=== PATIENT | male | born 1950 | race Caucasian/White ===

== ENCOUNTER → 2020-05-03 | Outpatient (CLI) | payer MEDICARE ==
[~2020-05-03] MED LIST: BENICAR20 MG PO; COUMADIN5 MG PO; COUMADIN7.5 MG PO; CRESTOR20 MG PO; DIGOXIN250 MCG PO; FINASTERIDE5 MG PO; IOPAMIDOL 370 MG/ML 200 ML INFUS..BTL INJ ONE; JALYN 0.5-0.41 EACH PO; LISINOPRIL10 MG PO; LISINOPRIL5 MG PO; METOPROLOL TART50 MG PO; NEXIUM40 MG PO; OMEPRAZOLE20 M1 PO; PANTOPRAZOLE SO40 MG PO; SODIUM CHLORIDE 0.9% 100 ML ONE; WARFARIN SODIUM5 MG PO
--- NOTE | 2020-05-03 15:04 | Diagnostic Imaging Report ---
Abdomen and Pelvis CTA WITH IV CONTRAST. INDICATION: Abdominal aortic aneurysm. Abdominal pain COMPARISON: None. TECHNIQUE: The abdomen and pelvis were scanned utilizing a multidetector helical scanner from the lung base to the pubic symphysis before and after administration of IV contrast. Coronal and sagittal reformations were obtained. 3D post-processing of the images was performed, and the post-processed images were used in interpretation. CTA protocol was performed. IV CONTRAST: 100mL of Isovue 370 ORAL CONTRAST: Water RADIATION DOSE: Total DLP: 708 mGy*cm FINDINGS: VESSELS: There are moderate calcified and noncalcified atherosclerotic plaques in the aorta and its major branches. There is no evidence of a flap within the aorta to suggest a dissection. No abdominal aortic aneurysm. The celiac artery, superior mesenteric artery, and inferior mesenteric artery are patent. There is a single right renal artery and a single left renal artery, both of which are patent. NON-VASCULAR: LOWER THORAX: No focal lung base consolidation. HEPATOBILIARY: No focal hepatic lesions. No biliary ductal dilatation. The gallbladder appears unremarkable. SPLEEN: No splenomegaly. PANCREAS: No focal masses or ductal dilatation. ADRENALS: No adrenal nodules. KIDNEYS/URETERS: No hydronephrosis, stones, or solid mass lesions. PELVIC ORGANS/BLADDER: Radiopaque prostate fiducials. PERITONEUM / RETROPERITONEUM: No free air or fluid. LYMPH NODES: No lymphadenopathy. GI TRACT: No abnormal bowel thickening. No bowel obstruction. Diverticulosis without CT evidence of diverticulitis. Normal appendix. BONES AND SOFT TISSUES: No acute osseous injury. No suspicious lytic or blastic lesions. Grade 1 anterolisthesis at L5-S1 with associated bilateral L5 pars interarticularis defects. IMPRESSION: No aortic aneurysm or dissection. Diverticulosis. Signed by: Monika Bennett MD on 05/03/2020 3:01 PM
== END ==
LOC: CT 12:20
PROVIDERS: ATTEND Surgery
DX: R10.9 Unspecified abdominal pain (principal); I71.4 Abdominal aortic aneurysm, without rupture
CPT/HCPCS: 74174; J7050; Q9967

== ENCOUNTER → 2020-05-06 | Day surgery (SDC) | payer MEDICARE ==
[2020-05-03 12:51] LABS: BASOPHILS % 0.6 % (0.0-1.0); EOSINOPHILS # (AUTO) 0.1 (0.0-0.4); EOSINOPHILS % 0.7 % (0.0-6.0); HEMATOCRIT 41.5 % (38.2-49.6); HEMOGLOBIN 13.8 g/dL (14.0-18.0); LYMPHOCYTES # (AUTO) 1.2 (1.0-3.2); LYMPHOCYTES % 17.2 % (18.0-39.1); MEAN CORPUSCULAR HEMOGLOBIN 33.7 pg (28-32); MEAN CORPUSCULAR HGB CONC 33.3 g/dL (31-35); MEAN CORPUSCULAR VOLUME 101.2 fL (81-99); MONOCYTES # (AUTO) 1.3 (0.2-0.8); MONOCYTES % 17.3 % (4.4-11.3); NEUTROPHILS # (AUTO) 4.6 (2.1-6.9); NEUTROPHILS % 63.9 % (38.7-80.0); PLATELET COUNT 194 x10e3/uL (140-360); RED CELL DISTRIBUTION WIDTH 13.3 % (11.7-14.4)
[2020-05-03 13:13] LABS: ALANINE AMINOTRANSFERASE 20 IU/L (0-55); ALBUMIN 4.3 g/dL (3.5-5.0); ALBUMIN/GLOBULIN RATIO 1.7 (0.8-2.0); ALKALINE PHOSPHATASE 59 IU/L (40-150); ANION GAP 13.9 mmol/L (8-16); BLOOD UREA NITROGEN 15 mg/dL (7-26); BUN/CREATININE RATIO 16 (6-25); CALCIUM 9.1 mg/dL (8.4-10.2); CARBON DIOXIDE 29 mmol/L (22-29); CHLORIDE 102 mmol/L (98-107); CREATININE, SERUM 0.93 mg/dL (0.72-1.25); EST GLOMERULAR FILTRATION RATE > 60 ML/MIN (60-); GLUCOSE 164 mg/dL (74-118); POTASSIUM 4.9 mmol/L (3.5-5.1); SODIUM 140 mmol/L (136-145)
--- NOTE | 2020-05-03 14:21 | Diagnostic Imaging Report ---
EXAMINATION: CHEST 2 VIEWS INDICATION: Pre-operative COMPARISON: None FINDINGS: LINES/TUBES:None LUNGS:The lungs are well-inflated. No focal consolidation or pulmonary edema. PLEURA:No pleural effusion or pneumothorax. MEDIASTINUM:The cardiomediastinal silhouette appears normal in size and shape. BONES/SOFT TISSUES:No acute osseous injury. ABDOMEN:No free air under the diaphragm. IMPRESSION: No focal pneumonia or pulmonary edema. Signed by: Monika Bennett MD on 05/03/2020 2:18 PM
[~2020-05-06] MED LIST changes: +FENTANYL CITRATE/PF 100MCG/2 ML INJ ONE; -IOPAMIDOL 370 MG/ML 200 ML INFUS..BTL INJ ONE; +LIDOCAINE HCL 2% LOCAL INJ 5 ML SDV VIAL INJ ONE; +PROPOFOL IV EMULSION 10 MG/ML 20 ML VIAL ONE; -SODIUM CHLORIDE 0.9% 100 ML ONE
[2020-05-06 07:36] LABS: INR 1.24; PARTIAL THROMBOPLASTIN TIME 30.7 seconds (23.8-35.5); PROTHROMBIN TIME 16.2 seconds (11.9-14.5)
[2020-05-06 09:37] VITALS: BP 147/85
== END | disposition home or self-care (01) ==
LOC: OR 06:23
PROVIDERS: ATTEND Surgery
DX: Z12.2 Encounter for screening for malignant neoplasm of respiratory organs (principal); K31.7 Polyp of stomach and duodenum; K29.80 Duodenitis without bleeding; K21.9 Gastro-esophageal reflux disease without esophagitis; K57.30 Diverticulosis of large intestine without perforation or abscess without bleeding; K44.9 Diaphragmatic hernia without obstruction or gangrene; J44.9 Chronic obstructive pulmonary disease, unspecified; I25.10 Atherosclerotic heart disease of native coronary artery without angina pectoris; I11.0 Hypertensive heart disease with heart failure; I50.9 Heart failure, unspecified; Z01.810 Encounter for preprocedural cardiovascular examination; Z01.812 Encounter for preprocedural laboratory examination; Z01.818 Encounter for other preprocedural examination; Z20.828 Contact with and (suspected) exposure to other viral communicable diseases; Z95.5 Presence of coronary angioplasty implant and graft
CPT/HCPCS: 36415 ×2; 43239; 45378; 71046; 80053; 85025; 85610; 85730; 88305; 93005; J2001; J2704; J3010; U0002

== ENCOUNTER → 2020-07-14 | Outpatient (CLI) | payer OTHER ==
[~2020-07-14] MED LIST changes: +COVID-19 VACC, MRNA(MODERNA)/PF 100 MCG/0.5 ML VIAL IM ONE; -FENTANYL CITRATE/PF 100MCG/2 ML INJ ONE; -LIDOCAINE HCL 2% LOCAL INJ 5 ML SDV VIAL INJ ONE; -PROPOFOL IV EMULSION 10 MG/ML 20 ML VIAL ONE
== END ==
LOC: VACCPMC 14:04
DX: Z23 Encounter for immunization (principal); Z20.822 Contact with and (suspected) exposure to COVID-19
CPT/HCPCS: 91301

== ENCOUNTER → 2020-08-07 | Outpatient (CLI) | payer OTHER | END | disposition home or self-care (01) | LOC: VACCPMC 09:32 | DX: Z23 Encounter for immunization (principal); Z20.822 Contact with and (suspected) exposure to COVID-19 | CPT/HCPCS: 91301 ==

== ENCOUNTER → 2021-04-14 | Outpatient (CLI) | payer OTHER, MEDICARE | LOC: VACCPMC 15:22 | DX: Z23 Encounter for immunization (principal); Z20.822 Contact with and (suspected) exposure to COVID-19 | CPT/HCPCS: 91301 ==

== ENCOUNTER → 2024-06-10 | Outpatient (REF) | payer MEDICARE ==
[~2024-06-10] MED LIST changes: -COVID-19 VACC, MRNA(MODERNA)/PF 100 MCG/0.5 ML VIAL IM ONE
== END ==
LOC: RAD 09:24
PROVIDERS: ATTEND Surgery
DX: M54.6 Pain in thoracic spine (principal); M54.50 Low back pain, unspecified; J98.11 Atelectasis
CPT/HCPCS: 71046; 72070; 72110

== ENCOUNTER 2024-06-20 11:08 | Inpatient (IN) | payer MEDICARE ==
[~2024-06-20] VITALS: Ht 172.7 cm; Wt 92.0 kg
[2024-06-20 12:03] LABS: BASOPHILS % 0.2 % (0.0-1.0); EOSINOPHILS # (AUTO) 0.4 (0.0-0.4); EOSINOPHILS % 1.9 % (0.0-6.0); HEMATOCRIT 38.4 % (38.2-49.6); HEMOGLOBIN 12.3 g/dL (14.0-18.0); LYMPHOCYTES # (AUTO) 0.4 (1.0-3.2); LYMPHOCYTES % 1.9 % (18.0-39.1); MEAN CORPUSCULAR HEMOGLOBIN 34.1 pg (28-32); MEAN CORPUSCULAR VOLUME 106.4 fL (81-99); MONOCYTES # (AUTO) 1.7 (0.2-0.8); MONOCYTES % 8.8 % (4.4-11.3); NEUTROPHILS % 86.8 % (38.7-80.0); PLATELET COUNT 249 x10e3/uL (140-360); RED BLOOD COUNT 3.61 x10e6/uL (4.3-5.7); RED CELL DISTRIBUTION WIDTH 13.2 % (11.7-14.4); WHITE BLOOD COUNT 19.61 x10e3/uL (4.8-10.8)
[2024-06-20 12:21] LABS: INR 2.56; PROTHROMBIN TIME 28.8 seconds (11.9-14.5)
[2024-06-20 12:22] LABS: PARTIAL THROMBOPLASTIN TIME 38.3 seconds (23.8-35.5)
[2024-06-20 12:31] LABS: ALBUMIN 4.3 g/dL (3.5-5.0); ALBUMIN/GLOBULIN RATIO 1.7 (0.8-2.0); ANION GAP 15.2 mmol/L (8-16); BILIRUBIN,TOTAL 1.5 mg/dL (0.2-1.2); CALCIUM 9.6 mg/dL (8.4-10.2); CREATININE, SERUM 0.76 mg/dL (0.72-1.25); POTASSIUM 4.2 mmol/L (3.5-5.1); TOTAL PROTEIN 6.8 g/dL (6.5-8.1)
[2024-06-20] MEDS ORDERED: SODIUM CHLORIDE FLUSH 10 ML SYR INJ PRN (13:45)
[2024-06-20] MEDS ORDERED: ONDANSETRON HCL INJ 2MG/ML 2ML 2 MG/ML VIAL IV PRN (13:45)
[2024-06-20] MEDS: FUROSEMIDE INJ 10 MG/ML 4 ML VIAL IV SCH ×2 (14:10→18:56)
[2024-06-20] MEDS: CLINDAMYCIN 600MG / 50ML 50 ML IV ONE (14:11)
[2024-06-20 15:40] VITALS: PULSE 80; RESP 14; TEMP 98.2
[2024-06-20 16:30] VITALS: BP 119/96; PULSE 95; RESP 17; TEMP 97.5; O2SAT 97
[2024-06-20] MEDS ORDERED: METFORMIN HCL500 M1 PO (16:40)
[2024-06-20] MEDS ORDERED: JANTOVEN7.5 MG (16:40)
[2024-06-20] MEDS ORDERED: JANTOVEN5 MG (16:40)
[2024-06-20] MEDS ORDERED: PROTONIX20 MG PO (16:40)
[2024-06-20 17:42] VITALS: BP 119/96; PULSE 95; RESP 20; TEMP 97.5; O2SAT 98
[2024-06-20 17:45] VITALS: BP 119/96; PULSE 95; RESP 20; TEMP 97.5; O2SAT 98
[2024-06-20] MEDS: HYDROCODONE/APAP 7.5MG-325MG 1 EA TAB PO PRN (18:57)
[2024-06-20 20:00] VITALS: BP 136/67; PULSE 90; RESP 20; TEMP 99; O2SAT 97
[2024-06-20] MEDS: OLMESARTAN 20 MG TAB PO SCH (21:48)
[2024-06-20] MEDS: CRESTOR 10MG PO SCH (21:48)
[2024-06-21] VITALS (11 sets, daily range): BP systolic 109–135; BP diastolic 60–78; PULSE 79–108; RESP 16–20; TEMP 97–98.4; O2SAT 93–100
[2024-06-21] MEDS: LEVALBUTEROL HCL SOLN NEBU 0.63 MG/3 ML NEB INH PRN (03:10)
[2024-06-21] MEDS: FUROSEMIDE INJ 10 MG/ML 4 ML VIAL ONE (04:04)
[2024-06-21] MEDS: FUROSEMIDE INJ 10 MG/ML 4 ML VIAL IV ONE (04:09)
[2024-06-21 07:00] LABS: BASOPHILS % 0.3 % (0.0-1.0); EOSINOPHILS % 0.1 % (0.0-6.0); HEMATOCRIT 36.1 % (38.2-49.6); HEMOGLOBIN 12.2 g/dL (14.0-18.0); LYMPHOCYTES # (AUTO) 0.6 (1.0-3.2); LYMPHOCYTES % 4.4 % (18.0-39.1); MEAN CORPUSCULAR HEMOGLOBIN 34.2 pg (28-32); MEAN CORPUSCULAR HGB CONC 33.8 g/dL (31-35); MEAN CORPUSCULAR VOLUME 101.1 fL (81-99); MONOCYTES # (AUTO) 1.5 (0.2-0.8); MONOCYTES % 10.5 % (4.4-11.3); NEUTROPHILS % 84.1 % (38.7-80.0); PLATELET COUNT 250 x10e3/uL (140-360); RED BLOOD COUNT 3.57 x10e6/uL (4.3-5.7); RED CELL DISTRIBUTION WIDTH 13.7 % (11.7-14.4); WHITE BLOOD COUNT 14.27 x10e3/uL (4.8-10.8)
[2024-06-21 07:26] LABS: ALBUMIN/GLOBULIN RATIO 1.7 (0.8-2.0); ANION GAP 16.9 mmol/L (8-16); BILIRUBIN,TOTAL 1.4 mg/dL (0.2-1.2); CALCIUM 9.7 mg/dL (8.4-10.2); CREATININE, SERUM 0.82 mg/dL (0.72-1.25); POTASSIUM 3.9 mmol/L (3.5-5.1); TOTAL PROTEIN 6.4 g/dL (6.5-8.1)
[2024-06-21] MEDS: METOPROLOL TARTRATE 50 MG TAB PO SCH (09:25)
[2024-06-21] MEDS: SODIUM CHLORIDE 0.9% 250ML 250 ML ONE (09:34)
[2024-06-21] MEDS ORDERED: WARFARIN SOD 5 MG TAB PO SCH (17:00)
[2024-06-22] VITALS (8 sets, daily range): BP systolic 111–151; BP diastolic 58–122; PULSE 82–112; RESP 18–22; TEMP 97.6–98.6; O2SAT 92–96
[2024-06-22] MEDS: HYDROMORPHONE 1MG/1ML INJ IV PRN (04:20)
[2024-06-22 06:35] LABS: INR 2.14
[2024-06-22] MEDS: METOPROLOL SUCCINATE 50 MG TAB XL PO SCH (08:08)
[2024-06-23] VITALS (9 sets, daily range): BP systolic 110–169; BP diastolic 71–91; PULSE 60–107; RESP 16–20; TEMP 97.6–98.6; O2SAT 95–100
[2024-06-23 06:29] LABS: BASOPHILS # (AUTO) 0.1 (0.0-0.1); BASOPHILS % 0.5 % (0.0-1.0); EOSINOPHILS # (AUTO) 0.1 (0.0-0.4); EOSINOPHILS % 1.4 % (0.0-6.0); HEMATOCRIT 38.7 % (38.2-49.6); HEMOGLOBIN 12.9 g/dL (14.0-18.0); LYMPHOCYTES # (AUTO) 1.1 (1.0-3.2); LYMPHOCYTES % 10.6 % (18.0-39.1); MEAN CORPUSCULAR HEMOGLOBIN 33.6 pg (28-32); MEAN CORPUSCULAR HGB CONC 33.3 g/dL (31-35); MEAN CORPUSCULAR VOLUME 100.8 fL (81-99); MONOCYTES # (AUTO) 2.1 (0.2-0.8); NEUTROPHILS # (AUTO) 6.9 (2.1-6.9); NEUTROPHILS % 66.9 % (38.7-80.0); PLATELET COUNT 286 x10e3/uL (140-360); RED BLOOD COUNT 3.84 x10e6/uL (4.3-5.7); RED CELL DISTRIBUTION WIDTH 13.6 % (11.7-14.4); WHITE BLOOD COUNT 10.24 x10e3/uL (4.8-10.8)
[2024-06-23 06:55] LABS: INR 1.44; PROTHROMBIN TIME 18.3 seconds (11.9-14.5)
[2024-06-23 06:57] LABS: ALBUMIN 3.8 g/dL (3.5-5.0); ALBUMIN/GLOBULIN RATIO 1.3 (0.8-2.0); ANION GAP 16.9 mmol/L (8-16); BILIRUBIN,TOTAL 1.2 mg/dL (0.2-1.2); CREATININE, SERUM 0.73 mg/dL (0.72-1.25); POTASSIUM 3.9 mmol/L (3.5-5.1); TOTAL PROTEIN 6.8 g/dL (6.5-8.1)
[2024-06-23 08:20] LABS: EOSINOPHILS % (MANUAL) 3 % (0-7); LYMPHOCYTES % (MANUAL) 10 % (19-48); MONOCYTES % (MANUAL) 12 % (3.4-9.0); NEUTROPHILS % (MANUAL) 72 % (40-74); PLATELET ESTIMATE ADEQUATE; PLATELET MORPHOLOGY COMMENT NORMAL; RBC MORPHOLOGY COMMENT NORMAL; REACTIVE LYMPHOCYTES 3
[2024-06-24] VITALS (9 sets, daily range): BP systolic 108–138; BP diastolic 67–90; PULSE 83–103; RESP 16–20; TEMP 97.6–98.3; O2SAT 96–100
[2024-06-25] VITALS (11 sets, daily range): BP systolic 100–144; BP diastolic 75–98; PULSE 74–95; RESP 18–20; TEMP 97.8–98.9; O2SAT 93–98
[2024-06-25 05:42] LABS: BASOPHILS # (AUTO) 0.1 (0.0-0.1); EOSINOPHILS # (AUTO) 0.2 (0.0-0.4); EOSINOPHILS % 3.4 % (0.0-6.0); HEMATOCRIT 36.3 % (38.2-49.6); LYMPHOCYTES # (AUTO) 1.6 (1.0-3.2); LYMPHOCYTES % 25.9 % (18.0-39.1); MEAN CORPUSCULAR HEMOGLOBIN 33.6 pg (28-32); MEAN CORPUSCULAR HGB CONC 33.1 g/dL (31-35); MEAN CORPUSCULAR VOLUME 101.7 fL (81-99); MONOCYTES # (AUTO) 0.7 (0.2-0.8); MONOCYTES % 11.2 % (4.4-11.3); NEUTROPHILS # (AUTO) 3.6 (2.1-6.9); NEUTROPHILS % 57.4 % (38.7-80.0); PLATELET COUNT 255 x10e3/uL (140-360); RED BLOOD COUNT 3.57 x10e6/uL (4.3-5.7); RED CELL DISTRIBUTION WIDTH 13.4 % (11.7-14.4); WHITE BLOOD COUNT 6.26 x10e3/uL (4.8-10.8)
[2024-06-25 05:53] LABS: INR 1.12; PROTHROMBIN TIME 15.1 seconds (11.9-14.5)
[2024-06-25 07:39] LABS: EOSINOPHILS % (MANUAL) 2 % (0-7); LYMPHOCYTES % (MANUAL) 13 % (19-48); MONOCYTES % (MANUAL) 8 % (3.4-9.0); MYELOCYTES % (MANUAL) 2 % (0-0); NEUTROPHILS % (MANUAL) 61 % (40-74); PLATELET ESTIMATE ADEQUATE; PLATELET MORPHOLOGY COMMENT NORMAL; RBC MORPHOLOGY COMMENT NORMAL; REACTIVE LYMPHOCYTES 14
[2024-06-26] VITALS (7 sets, daily range): BP systolic 98–126; BP diastolic 65–82; PULSE 71–105; RESP 18–20; TEMP 97.5–98.4; O2SAT 92–98
[2024-06-26] MEDS: INSULIN LISPRO 100 UNIT/1 ML 3ML VIAL SQ ONE (21:55)
[2024-06-27 00:30] VITALS: BP 117/62; PULSE 102; RESP 16; TEMP 97.4; O2SAT 97
[2024-06-27 04:11] VITALS: BP 93/65; PULSE 90; RESP 16; TEMP 97.8; O2SAT 95
[2024-06-27 07:55] VITALS: BP 118/74; PULSE 93; RESP 20; TEMP 98.2; O2SAT 95
[2024-06-27 08:00] VITALS: BP 118/74; PULSE 93; RESP 20; TEMP 98.2; O2SAT 95
[2024-06-27 08:20] VITALS: PULSE 68; RESP 18; O2SAT 95
[2024-06-27] MEDS: METFORMIN HCL 500 MG TAB CR PO SCH (08:47)
[2024-06-27 11:56] VITALS: BP 141/81; PULSE 95; RESP 20; TEMP 98.7; O2SAT 98
== END 2024-06-27 14:15 | disposition home or self-care (01) | DRG 478 ==
LOC: ER 11:16 → ERHOLD 13:34 → MED/SURG2 16:10
PROVIDERS: ADMIT Surgery; ATTEND Surgery
PROC: 0PU43JZ Supplement Thoracic Vertebra with Synthetic Substitute, Percutaneous Approach (ICD-10-PCS; principal; 2024-06-26)
PROC: 0PB43ZX Excision of Thoracic Vertebra, Percutaneous Approach, Diagnostic (ICD-10-PCS; 2024-06-26)
DX: S22.060A Wedge compression fracture of T7-T8 vertebra, initial encounter for closed fracture (principal); E87.1 Hypo-osmolality and hyponatremia; L03.116 Cellulitis of left lower limb; I50.22 Chronic systolic (congestive) heart failure; I11.0 Hypertensive heart disease with heart failure; D72.829 Elevated white blood cell count, unspecified; E78.5 Hyperlipidemia, unspecified; I25.10 Atherosclerotic heart disease of native coronary artery without angina pectoris; I48.91 Unspecified atrial fibrillation; R60.0 Localized edema; X58.XXXA Exposure to other specified factors, initial encounter; Z79.01 Long term (current) use of anticoagulants; Z95.5 Presence of coronary angioplasty implant and graft; Z79.84 Long term (current) use of oral hypoglycemic drugs; S31.119A Laceration without foreign body of abdominal wall, unspecified quadrant without penetration into peritoneal cavity, initial encounter
CPT/HCPCS: 22514; 36415; 71045; 72146; 74470; 80053; 82948; 83880; 84152; 84484; 85025; 85610; 85730; 88305; 88307; 88311; 88342; 93005; 93306; 93971; 94640; 94799; 99284; C1062; J0696; J1171; J1940; J7050